=== PATIENT | female | born 1995 | race Two or more races ===

== ENCOUNTER 2025-03-20 16:16 | Emergency (ER) | payer OTHER ==
[~2025-03-20] VITALS: Ht 162.6 cm; Wt 68.0 kg
[2025-03-20 18:03] LABS: APPEARANCE,URINE CLEAR (CLEAR); BLOOD, URINE Negative Ery/uL (NEGATIVE); LEUKOCYTE ESTERASE ,URINE Small (NEGATIVE); UGLUCOSE Negative (NEGATIVE)
[2025-03-20 18:06] LABS: NITRITE, URINE POSITIVE (NEGATIVE)
[2025-03-20 18:07] LABS: ADD URINE CULTURE YES; SQUAMOUS EPITHELIAL CELL,UR Few /HPF (None Seen)
[2025-03-20 18:08] LABS: PREGNANCY TEST URINE QUAL NEGATIVE (NEGATIVE)
[2025-03-20] MEDS ORDERED: dexaMETHasone SOD PHOSPHATE 1 ML ONE (18:22)
[2025-03-20 18:23] LABS: PLATELET COUNT (AUTO) 201 K/uL (150-450); RED BLOOD CELL COUNT(AUTO) 5.46 MIL/uL (4.0-5.2); RED CELL DISTRIBUTION WIDTH 14.6 % (11.5-15.0); WHITE BLOOD COUNT (AUTO) 12.8 K/uL (4.3-11.0)
[2025-03-20] MEDS ORDERED: ONDANSETRON HCL/PF 4 MG/2 ML VIAL ONE (18:24)
[2025-03-20] MEDS ORDERED: PROCHLORPERAZINE EDISYLATE 10 MG/2 ML VIAL ONE (18:24)
[2025-03-20] MEDS ORDERED: KETOROLAC TROMETHAMINE INJ 30 MG/ML VIAL ONE ×2 (18:24)
[2025-03-20] MEDS: IV NS 0.9% 1,000 ML BAG IV ONE (18:26)
[2025-03-20] MEDS: ONDANSETRON HCL/PF - ER 4 MG/2 ML VIAL IV ONE (18:27)
[2025-03-20] MEDS: KETOROLAC TROMETHAMINE INJ 30 MG/ML VIAL IV ONE (18:30)
[2025-03-20] MEDS: dexaMETHasone SOD PHOSPHATE 10 MG/ML VIAL IV ONE (18:30)
[2025-03-20 18:31] LABS: CALCIUM, SERUM 9.4 mg/dL (8.5-10.1); CREATININE 0.7 mg/dL (0.6-1.3); SODIUM SERUM 138.0 mmol/L (136-145); UREA NITROGEN, BLOOD 12.0 mg/dL (7-18)
[2025-03-20] MEDS: PROCHLORPERAZINE EDISYLATE 10 MG/2 ML VIAL IVP ONE (18:31)
[2025-03-20 18:37] LABS: ASPARTATE AMINOTRANSFERASE 23.0 U/L (15-37); TOTAL PROTEIN, SERUM 7.6 g/dL (6.4-8.2)
[2025-03-20] MEDS ORDERED: ALBU18HF2 INH (19:46)
[2025-03-20] MEDS ORDERED: NITR100C6 PO (19:46)
[2025-03-20] MEDS ORDERED: KETO10TA2 PO (20:10)
[2025-03-20] MEDS ORDERED: ONDA4TAB11 PO (20:10)
[2025-03-20 20:30] VITALS: BP 121/82; TEMP 98.2; O2SAT 18
== END 2025-03-20 20:31 | disposition home or self-care (01) ==
LOC: ER 16:29
DX: N39.0 Urinary tract infection, site not specified (principal); E86.0 Dehydration; R53.1 Weakness; R11.0 Nausea; Z20.822 Contact with and (suspected) exposure to COVID-19
CPT/HCPCS: 99284; 96374; 96375; 71045; 96361; 87426; 85025; 80048; 83690; 80076; 81001; 36415; 84703 ×2; J1885 ×2; J0780; J1100; J2405 ×2; J7030; 87086-TC